=== PATIENT | male | born 1975 | race Caucasian/White ===

== ENCOUNTER 2016-10-17 22:48 | Emergency (ER) | payer OTHER, SELFPAY ==
[~2016-10-17] VITALS: Ht 177.8 cm; Wt 95.3 kg
[2016-10-17] MEDS ORDERED: HYDR-3713 PO (23:00)
[2016-10-18] MEDS ORDERED: IBUPROFEN 600 MG TAB PO ONE (06:30)
[2016-10-18 06:41] VITALS: BP 128/84
--- NOTE | 2016-10-19 08:30 | REP ---
Clinical: Trauma. Technique: AP, lateral, bilateral oblique views left wrist. Findings: The carpal bones, surrounding osseous structures, soft tissues, and joint spaces are normal. There is no evidence for acute fracture or dislocation. No subcutaneous emphysema or radiodense foreign body. Impression: No acute fracture or dislocation Signed by Alexei Boykin MD 10/18/2016 07:28 A
== END 2016-10-18 06:42 | disposition home or self-care (01) ==
LOC: M ED 10-18 00:30
DX: S63.522A Sprain of radiocarpal joint of left wrist, initial encounter (principal); X50.0XXA Overexertion from strenuous movement or load, initial encounter; Y92.218 Other school as the place of occurrence of the external cause; Y93.89 Activity, other specified; Y99.8 Other external cause status

== ENCOUNTER → 2021-05-27 | Outpatient (CLI) | payer OTHER ==
[~2021-05-27] MED LIST: HYDR-3713 PO
--- NOTE | 2021-05-27 14:46 | REP ---
INDICATION: RT SHOULDER PAIN. COMPARISON: None. TECHNIQUE: Coronal oblique T1 and fat suppressed T2. Sagittal oblique fat suppressed T2. Axial [id number] and T2 FLASH. FINDINGS: On 09/18/2003 the patient underwent distal clavicle excision. There is no discernible AC joint due to the previous surgical procedure. The acromion process is type 1. Magnetic susceptibility artifact is seen scattered throughout the soft tissues superiorly. Patchy and linear T2 hyper signal is seen in the supraspinatus tendon. There is no evidence of supraspinatus musculotendinous retraction or muscular atrophy. There is no evidence of coracohumeral or coracoacromial ligamentous thickening. The signal within the subscapularis, infraspinatus, and teres minor tendons is within normal limits. The biceps tendon resides within the bicipital groove. There is no glenohumeral joint effusion or abnormal fluid in the subcoracoid recess. The marrow signal is within normal limits. IMPRESSION: 1. There is evidence of supraspinatus tendinitis/tendinosis. 2. Postoperative changes as described above. <Electronically signed by Dimitri Bustamante > 05/27/21 0919
== END ==
LOC: M PLAIMG 12:56
PROVIDERS: ATTEND Nurse Practitioner Family
DX: M25.511 Pain in right shoulder (principal)

== ENCOUNTER → 2021-08-27 | Outpatient (CLI) | payer OTHER | LOC: M PLARAD 10:27 | PROVIDERS: ATTEND Pain Medicine Interventional Pain Medicine | DX: M47.817 Spondylosis without myelopathy or radiculopathy, lumbosacral region (principal); M51.36 Other intervertebral disc degeneration, lumbar region; M51.37 Other intervertebral disc degeneration, lumbosacral region; M48.061 Spinal stenosis, lumbar region without neurogenic claudication ==

== ENCOUNTER → 2025-05-19 | Outpatient (CLI) | payer OTHER | LOC: M RAD 15:32 | PROVIDERS: ATTEND Pain Medicine Interventional Pain Medicine | DX: M47.817 Spondylosis without myelopathy or radiculopathy, lumbosacral region (principal) ==